=== PATIENT | female | born 1975 | race African-American/Black ===

== ENCOUNTER 2021-03-03 13:30 | Emergency (ER) | payer MEDICARE, MEDICAID, SELFPAY ==
[2021-03-03 13:45] VITALS: BP 124/77; PULSE 80; O2SAT 99
--- NOTE | 2021-03-03 13:58 | ED.DIZZY ---
HPI - Dizziness General Chief Complaint: Dizziness Stated Complaint: Chest pain Time Seen by Provider: 03/03/21 13:58 Source: patient Mode of arrival: ambulatory Limitations: no limitations History of Present Illness HPI Narrative: patient has issues with her blood pressure, lightheaded. patient states the her blood pressure has been running in the 200s MD elicited complaint: dizziness and lightheadedness Onset (ago): day(s) Timing: gradual onset Severity: mild History of similar symptoms: Yes Associated symptoms: nausea and vomiting Related Data Allergies Allergy/AdvReac Type Severity Reaction Status Date / Time Shellfish Allergy Mild RASH Uncoded 02/08/20 14:55 Review of Systems Constitutional: Constitutional: Reports no additional constitutional complaints Eyes: Eyes: Reports no additional eye complaints ENT: Denies dizziness Cardiovascular: Cardiovascular: Reports no additional cardiovascular complaints Respiratory: Respiratory: Reports as per HPI Gastrointestinal: Gastrointestinal: Reports no additional gastrointestinal complaints Genitourinary: Genitourinary: Reports no additional female genitourinary complaints Musculoskeletal: Musculoskeletal: Reports no additional musculoskeletal complaints Integumentary/Breasts: Skin/Breast: Denies rash Neurologic: Reports system reviewed and no additional complaints, except as documented, Denies dizziness and Denies Sensory deficit (Neuro) Psychiatric: Psychiatric: Denies anxiety PMFSH Social History Social History Advance Directives: No Advance Directives Information Provided: No Physical Exam Vital Signs: Vital Signs: Last Vital Signs Temp 98.3 F 03/03/21 14:46 Pulse 72 03/03/21 14:46 Resp 18 03/03/21 14:46 BP 116/80 03/03/21 14:46 Pulse Ox 98 03/03/21 14:46 Const: Other: patient very dramatic General: healthy appearing Nutritional Appearance: average body habitus Orientation/consciousness: oriented to person and patient oriented x3 Limitations: no limitations HENMT: Head: Yes normal to inspection Ears: external ears normal General nose exam: Normal external nose present Mouth: Normal oral and palatal mucosa present and oropharynx normal Throat: Yes posterior oropharynx normal Eyes: General: appearance normal, both eyes and all related structures Neck: Other: supple Neck: Yes normal visual inspection Chest: Chest palpation & inspection: normal inspection of the chest Resp: Auscultation: clear to auscultation bilaterally Cardio: Jugular venous distension: no JVD Rate: regular rate Rhythm: regular rhythm Heart sounds: S1 normal heart sound present and S2 normal heart sound present GI: Other: mild right upper quadrant tenderness with deep palpation Auscultation: normal bowel sounds : General: Yes no CVA tenderness Back/Spine/Pelvis: Back: no CVA tenderness Skin: General skin exam: no rashes or lesions noted Neuro: General: oriented to person and patient oriented x3 Cranial nerves: Yes CN's II-XII intact bilaterally Motor exam (neuro): 5/5 motor strength present throughout Sensory Exam: No Sensory deficit (Neuro) Extrem: General: Yes normal to inspection Psych: Other: very anxious Course Reevaluation(s) Reevaluation #1: Vitals normal, EKG and troponin normal. No cardiac reason for chest pain. will have patient follow up with her pmd Time: 16:12 [facility] - Dizziness Lab Data Result diagrams: 03/03/21 14:22 03/03/21 14:22 Labs: Lab Results 03/03/21 03/03/21 03/03/21 Range/Units 14:07 14:22 14:22 WBC 8.1 (4.8-10.8) X10*3/uL RBC 4.15 L (4.20-5.50) X10*6/uL Hgb 12.1 (12.0-16.0) g/dl Hct 36.1 L (37-47) % MCV 87.0 (80-98) fL MCH 29.2 (27.0-33.0) pg MCHC 33.5 (31.0-35.0) g/dl RDW 13.3 (11.0-16.0) % Plt Count 272 (160-400) X10*3/uL MPV 9.8 (9.4-12.3) fL Immature Gran % (Auto) 0.2 (0.0-0.4) % Neut % (Auto) 68.9 (45-73) % Lymph % (Auto) 22.6 (20-40) % [place] % (Auto) 7.2 (2-11) % Eos % (Auto) 0.7 (0-4) % Baso % (Auto) 0.4 (0-2) % Lymph # (Auto) 1.8 (1.2-4.9) X10*3/uL [place] # (Auto) 0.6 (0.1-1.2) X10*3/uL Eos # (Auto) 0.1 (0.0-0.4) X10*3/uL Baso # (Auto) 0.0 (0.0-0.2) X10*3/uL Abs Immat Gran (auto) 0.02 (0.00-0.03) X10*3/uL Absolute Neuts (auto) 5.6 (2.0-8.3) X10*3/uL Absolute Nucleated RBC 0.000 (0.0-0.012) X10*3/uL Nucleated RBC % (auto) 0.0 (0.0-0.2) /100WBC Sodium 140 (135-145) mmol/L Potassium 4.1 (3.3-5.1) mmol/L Chloride 109 H (96-108) mmol/L Carbon Dioxide 22 (22-29) mmol/L Anion Gap 13 (12-20) BUN 18 H (9-16) mg/dL Creatinine 0.73 (0.5-1.4) mg/dL Estim Creat Clear Calc TNP Estimated GFR > 60 Random Glucose 94 (60-115) mg/dL Calcium 9.2 (8.4-10.2) mg/dL Total Bilirubin 0.5 (0.0-1.0) mg/dL Direct Bilirubin < 0.2 (0.0-0.5) mg/dL AST 19 (5-31) U/L ALT 26 (0-31) U/L Alkaline Phosphatase 62 (39-117) U/L Troponin I High Sens (<3.5-17.0) ng/L Total Protein 7.2 (6.5-8.0) g/dL Albumin 4.1 (3.5-5.0) g/dL Coronavirus (PCR) NEGATIVE (Negative) Influenza Type A (PCR) NEGATIVE (Negative) Influenza Type B (PCR) NEGATIVE (Negative) RSV RNA Qual (PCR) NEGATIVE (Negative) 03/03/21 Range/Units 14:22 WBC (4.8-10.8) X10*3/uL RBC (4.20-5.50) X10*6/uL Hgb (12.0-16.0) g/dl Hct (37-47) % MCV (80-98) fL MCH (27.0-33.0) pg MCHC (31.0-35.0) g/dl RDW (11.0-16.0) % Plt Count (160-400) X10*3/uL MPV (9.4-12.3) fL Immature Gran % (Auto) (0.0-0.4) % Neut % (Auto) (45-73) % Lymph % (Auto) (20-40) % [place] % (Auto) (2-11) % Eos % (Auto) (0-4) % Baso % (Auto) (0-2) % Lymph # (Auto) (1.2-4.9) X10*3/uL [place] # (Auto) (0.1-1.2) X10*3/uL Eos # (Auto) (0.0-0.4) X10*3/uL Baso # (Auto) (0.0-0.2) X10*3/uL Abs Immat Gran (auto) (0.00-0.03) X10*3/uL Absolute Neuts (auto) (2.0-8.3) X10*3/uL Absolute Nucleated RBC (0.0-0.012) X10*3/uL Nucleated RBC % (auto) (0.0-0.2) /100WBC Sodium (135-145) mmol/L Potassium (3.3-5.1) mmol/L Chloride (96-108) mmol/L Carbon Dioxide (22-29) mmol/L Anion Gap (12-20) BUN (9-16) mg/dL Creatinine (0.5-1.4) mg/dL Estim Creat Clear Calc Estimated GFR Random Glucose (60-115) mg/dL Calcium (8.4-10.2) mg/dL Total Bilirubin (0.0-1.0) mg/dL Direct Bilirubin (0.0-0.5) mg/dL AST (5-31) U/L ALT (0-31) U/L Alkaline Phosphatase (39-117) U/L Troponin I High Sens < 3.5 (<3.5-17.0) ng/L Total Protein (6.5-8.0) g/dL Albumin (3.5-5.0) g/dL Coronavirus (PCR) (Negative) Influenza Type A (PCR) (Negative) Influenza Type B (PCR) (Negative) RSV RNA Qual (PCR) (Negative) ECG Data Attestation: I personally reviewed and interpreted this ECG as follows: ECG interpretation date: 03/03/21 ECG interpretation time: 15:15 Interpretation: Ventricular rate 75, normal sinus rhythm. No JEREMY, no t wave inversions Discharge Plan Discharge Clinical Impression: Dizziness, Chest pain not due to acute coronary syndrome Patient Disposition: Home, Self-Care Instructions: Noncardiac Chest Pain (ED), Dizziness (ED) Referrals: Shea Carrizales MD [Primary Care Provider] - 3 days
--- NOTE | 2021-03-03 14:01 | ECG_ITS ---
Test Reason : CHEST PAIN Blood Pressure : / mmHG Vent. Rate : 075 BPM Atrial Rate : 075 BPM P-R Int : 166 ms QRS Dur : 076 ms QT Int : 378 ms P-R-T Axes : 061 017 026 degrees QTc Int : 422 ms Normal sinus rhythm Normal ECG No previous ECGs available Referred By: Andrea Zhao Electronically Signed By:ANNETTE GOMEZ MD
[2021-03-03 14:39] LABS: MANUAL DIFF FLAG NO
[2021-03-03 14:41] LABS: Basophils Percent Auto 0.4 % (0-2); Eosinophils Absolute Auto 0.1 X10*3/uL (0.0-0.4); Eosinophils Percent Auto 0.7 % (0-4); Hematocrit 36.1 % (37-47); Hemoglobin 12.1 g/dl (12.0-16.0); Imm Gran Abs Auto 0.02 X10*3/uL (0.00-0.03); Imm Gran Pct Auto 0.2 % (0.0-0.4); Lymphocytes Absolute Auto 1.8 X10*3/uL (1.2-4.9); Lymphocytes Percent Auto 22.6 % (20-40); Mean Corpuscular HGB Conc 33.5 g/dl (31.0-35.0); Mean Corpuscular Hemoglobin 29.2 pg (27.0-33.0); Mean Platelet Volume 9.8 fL (9.4-12.3); Monocytes Absolute Auto 0.6 X10*3/uL (0.1-1.2); Monocytes Percent Auto 7.2 % (2-11); Neutrophils Absolute Auto 5.6 X10*3/uL (2.0-8.3); Neutrophils Percent Auto 68.9 % (45-73); Platelet Count 272 X10*3/uL (160-400); Red Blood Count 4.15 X10*6/uL (4.20-5.50); Red Cell Distribution Width 13.3 % (11.0-16.0); White Blood Count 8.1 X10*3/uL (4.8-10.8)
[2021-03-03 14:46] VITALS: BP 116/80; PULSE 72; RESP 18; TEMP 36.8; O2SAT 98
[2021-03-03 14:57] LABS: Alanine Aminotransferase 26 U/L (0-31); Albumin Level 4.1 g/dL (3.5-5.0); Alkaline Phosphatase 62 U/L (39-117); Anion Gap 13 (12-20); Aspartate Amino Transferase 19 U/L (5-31); Bilirubin Direct < 0.2 mg/dL (0.0-0.5); Bilirubin Total 0.5 mg/dL (0.0-1.0); Blood Urea Nitrogen 18 mg/dL (9-16); Calcium 9.2 mg/dL (8.4-10.2); Carbon Dioxide 22 mmol/L (22-29); Chloride 109 mmol/L (96-108); Estimated Glomerular Filt Rate > 60; Glucose Random 94 mg/dL (60-115); Potassium 4.1 mmol/L (3.3-5.1); Sodium 140 mmol/L (135-145); Total Protein 7.2 g/dL (6.5-8.0)
[2021-03-03 15:08] LABS: Troponin-I High Sensitivity < 3.5 ng/L (<3.5-17.0)
[2021-03-03 15:40] LABS: Influenza A PCR NEGATIVE (Negative); Influenza B PCR NEGATIVE (Negative); Resp Syncy Virus RNA Qual PCR NEGATIVE (Negative); SARS COV2 PCR INHOUSE NEGATIVE (Negative)
[2021-03-03 16:40] VITALS: BP 111/69; PULSE 68; RESP 18; TEMP 36.8; O2SAT 98
== END 2021-03-03 16:46 | disposition home or self-care (01) ==
PROVIDERS: Emergency Provider Emergency Medicine; PCP Internal Medicine
DX: R42 Dizziness and giddiness (principal); R07.9 Chest pain, unspecified; Z20.822 Contact with and (suspected) exposure to COVID-19
CPT/HCPCS: 0241U; 36415; 80048; 80076; 84484; 85025; 93005; 99283; 99284

== ENCOUNTER 2022-06-09 09:12 | Outpatient (REF) | payer OTHER, SELFPAY ==
[2022-06-09 13:07] LABS: Influenza A PCR NEGATIVE (Negative); Influenza B PCR NEGATIVE (Negative); Resp Syncy Virus RNA Qual PCR NEGATIVE (Negative); SARS COV2 PCR INHOUSE NEGATIVE (Negative)
== END 2022-06-09 09:13 | disposition home or self-care (01) ==
LOC: HO.LAB 09:12
PROVIDERS: Visit Provider Nurse Practitioner Family
DX: R11.2 Nausea with vomiting, unspecified (principal); Z20.822 Contact with and (suspected) exposure to COVID-19
CPT/HCPCS: 0241U

== ENCOUNTER 2022-09-01 12:31 | Emergency (ER) | payer OTHER, SELFPAY ==
--- NOTE | 2022-09-01 12:45 | ED_ITS ---
HPI - Abdominal Pain General Chief Complaint: General Medical Stated Complaint: lightheadness nausea Related Data Home Medications Medication Instructions Recorded Confirmed albuterol sulfate 2.5 mg/3 mL mg inhalation 06/09/22 (0.083 %) solution for nebulization albuterol sulfate 90 mcg/actuation 2 puff inhalation Q6H PRN wheezing 06/09/22 aerosol inhaler amlodipine 5 mg tablet 5 mg PO DAILY 06/09/22 fluticasone propionate 110 2 puff inhalation BID 06/09/22 mcg/actuation HFA aerosol inhaler (Flovent HFA) gabapentin 300 mg capsule 300 mg PO BEDTIME 06/09/22 meloxicam 15 mg tablet 15 mg PO DAILY 06/09/22 prednisone 20 mg tablet 20 mg PO BID 06/09/22 Previous Rx's Medication Instructions Recorded ondansetron 4 mg disintegrating 4 mg PO Q8H PRN nausea and 09/02/22 tablet vomiting #10 tabs Allergies Allergy/AdvReac Type Severity Reaction Status Date / Time Shellfish Allergy Mild RASH Uncoded 02/08/20 14:55 PMFSH Social History Social History Alcohol intake: unknown Patient Tobacco Use Status: Tobacco use Unknown Advance Directives: No Advance Directives Information Provided: Yes Physical Exam ED Vital Signs: BMI result Body Mass Index 32.6 Course Course Course Narrative: RME-- 46yo F w/no sig PMHx c/o fatigue, nausea, epigastric/RUQ abd pain, lightheadedness, diarrhea, fever (Tmax 101), sore throat x3 days. Vital signs stable abdomen soft epigastric/RUQ tenderness, no rebound or guarding EKG, Labs, UA, COVID/flu/rapid strep, abdomen ultrasound ordered Medical Decision Making Lab Data Labs: Lab Results 09/01/22 09/01/22 Range/Units 13:15 13:16 Urine Color Yellow Urine Appearance Clear Urine pH 8.0 (5.0-9.0) Ur Specific [place] 1.025 (1.005-1.025) Urine Protein Negative (Neg-Trace) mg/dL Urine Glucose (UA) Negative (Negative) mg/dL Urine Ketones Negative (Negative) mg/dL Urine Blood Negative (Negative) Urine Nitrite Negative (Negative) Ur Leukocyte Esterase Negative (Negative) COVID-19 (COREY) Negative (Negative) COVID-19 Clin Com See Note Discharge Plan Discharge Clinical Impression: Acute viral syndrome Patient Disposition: Elopement Prescriptions: No Action ondansetron 4 mg tablet,disintegrating 4 mg PO Q8H PRN (Reason: nausea and vomiting) Qty: 10 0RF albuterol sulfate 90 mcg/actuation HFA aerosol inhaler 2 puff inhalation Q6H PRN (Reason: wheezing) meloxicam 15 mg tablet 15 mg PO DAILY fluticasone propionate [Flovent HFA] 110 mcg/actuation HFA aerosol inhaler 2 puff inhalation BID gabapentin 300 mg capsule 300 mg PO BEDTIME amlodipine 5 mg tablet 5 mg PO DAILY albuterol sulfate 2.5 mg /3 mL (0.083 %) solution for nebulization inhalation prednisone 20 mg tablet 20 mg PO BID Interventions: ED Discharge Assessment Last Done: 09/01/22 13:53 Discharge Date/Time: 09/01/22 13:55
[2022-09-01 12:46] VITALS: BP 151/83; PULSE 69; RESP 18; TEMP 36.9; O2SAT 98; BMI 32.6
--- NOTE | 2022-09-01 12:47 | ECG_ITS ---
Test Reason : epigastric pain ,ligtheaded Blood Pressure : / mmHG Vent. Rate : 062 BPM Atrial Rate : 062 BPM P-R Int : 168 ms QRS Dur : 082 ms QT Int : 386 ms P-R-T Axes : 063 005 025 degrees QTc Int : 391 ms Normal sinus rhythm Normal ECG When compared with ECG of 03-MAR-2021 14:36, No significant change was found Referred By: Dolores Al Electronically Signed By:STACY VILLALOBOS MD
[2022-09-01 13:26] LABS: Appearance Urine Clear; Color Urine Yellow; Glucose Urine UA Negative (Negative); Leukocyte Esterase Urine Negative (Negative); Nitrite Urine Negative (Negative); Specific Gravity - Urine 1.025 (1.005-1.025); Urine Blood Negative (Negative); Urine Ketones Negative (Negative); Urine Protein Negative (Neg-Trace)
[2022-09-01 13:42] LABS: COVID-19 Test Negative (Negative); IDNOW Serial# 6674DD1D
--- OUTSIDE RECORDS SUMMARY | 2022-09-01 13:56 | XMS_ITS | Continuity of Care Document ---
Author Name Unknown Organization [facility] juan c Address [address] [place] [address] [address] [place] [address]- Care Team Providers Care Hand Assembler For Puller Over Name Role Phone Kirti Jarrett MD Primary Care Physician [phone] Encounter [facility] Date(s): 10/08/20 - 12/08/20 [facility] [address] [place], [place] [address] Attending Physician: Trinidad STERN, Regla Hester Allergies, Adverse Reactions, Alerts Substance Reaction Severity Status shellfish Exacerbation of asthma Severe Activ e Pet Dander Exacerbation asthma Active Immunizations Not Given Vaccine Date Status Refusal Reason pneumococcal 23-valent vaccine 05/15/16 Not Given Patient Refuses Medications albuterol 0.083% inhalation solution 3 mL = 2.5 mg, Inhalation, Every 6 hours, PRN for wheezing, # 60 each, 0 Refills, Maintenance, Solution Start Date: 11/06/10 Status: Ordered albuterol 0.083% inhalation solution 3 mL = 2.5 mg, Neb, Every 4 hours, PRN as needed for wheezing, # 90 mL, 0 Refills, Maintenance, 07/06/19 19:27:00 EST, Solution, [facility] #[id number], 165, cm, 05/14/19 3:46:00 EST, Height, 105, kg, 05/14/19 3:46:00 EST, Dry Weight Start Date: 07/06/19 Status: Ordered albuterol CFC free 90 mcg/inh inhalation aerosol 2, puffs, Inhalation, Every 4 hours, PRN, # 18 Gm, Refills 0, Tot. Refills 0, Maintenance, 07/06/2018:28:00 EST, Aerosol, Route to Pharmacy Electronically, NCPDP_[id number], [facility] #[id number], 165, cm, 05/14/19 3:46:00 EST, Height, 105, kg,... Start Date: 07/06/19 Status: Ordered Ativan 0.5 mg oral tablet 1 tablet = 0.5 mg, By Mouth, Daily, PRN as needed for anxiety, # 5 tablet, 0 Refills, Soft Stop, 05/16/16 12:02:27, Tablet Start Date: 05/16/16 Status: Ordered Cymbalta Capsule By Mouth, 0 Refills, Maintenance, 08/16/20 13:56:00 EDT, Partial fill upon patient request if the prescription is for a schedule II opioid drug. Start Date: 08/16/20 Status: Ordered docusate sodium 100 mg oral capsule 100 mg, 1, capsule, By Mouth, 2 times a day, # 60 capsule, Refills 0, Tot. Refills 0, Maintenance, 10/02/20 7:17:00 EDT, Route to Pharmacy Electronically, [facility] #[id number], Partial fill upon patient request if the prescription is for a sche... Start Date: 10/02/20 Status: Ordered EpiPen 2-Gary 0.3 mg injectable kit = 0.3 mg, Intramuscular, Once, PRN Other, As needed for allergic reaction may repeat if necessary, # 1 kit, 0 Refills, Soft Stop, 10/05/17 7:12:29 EDT Start Date: 10/05/17 Status: Ordered Gabapentin By Mouth, 0 Refills, Maintenance, 08/16/20 13:56:00 EDT, Partial fill upon patient request if the prescription is for a schedule II opioid drug. Start Date: 08/16/20 Status: Ordered ibuprofen 400 mg oral tablet 1 tablet = 400 mg, By Mouth, Every 4 hours, PRN for pain, # 30 tablet, 0 Refills, Maintenance, 02/14/15 13:07:00, Tablet Start Date: 02/14/15 Stop Date: 02/19/15 Status: Ordered Symbicort 160mcg/4.5mcg Inhaler 2 puffs, Inhalation, 2 times a day, 0 Refills, Maintenance Start Date: 02/25/11 Status: Ordered Social History Social History Type Response Smoking Status Never smoker entered on: 05/14/16 Sex
--- OUTSIDE RECORDS SUMMARY | 2022-09-01 13:56 | XMS_ITS | Continuity of Care Document ---
Author Name Unknown Organization [facility] Address [address] [place] [address]- Care Team Providers Care Feller Hand Name Role Phone Kirti Jarrett MD Primary Care Physician [phone] Encounter [facility] Date(s): 05/13/19 - 05/14/[address] [address] [facility] Encounter Diagnosis Vaginal bleeding(Final) - 05/14/19 Lower abdominal pain(Final) - 05/14/19 LLQ pain(Final) - 05/14/19 [facility]charge [facility]: [facility] Attending Physician: Cecil Dumont MD Admitting Physician: Cecil Dumont MD Referring Physician: Not on Staff, Referring MD Allergies, Adverse Reactions, Alerts Substance Reaction Severity Status shellfish Exacerbation of asthma Severe Activ e Immunizations Not Given Vaccine Date Status Refusal Reason pneumococcal 23-valent vaccine 05/15/16 Not Given Patient Refuses Medications albuterol 0.083% inhalation solution 3 mL = 2.5 mg, Inhalation, Every 6 hours, PRN for wheezing, # 60 each, 0 Refills, Maintenance, Solution Start Date: 11/06/10 Status: Ordered albuterol CFC free 90 mcg/inh inhalation aerosol 2 puffs, Inhalation, 4 times a day, PRN for wheezing, # 75 Gm, 0 Refills, Maintenance, Aerosol Start Date: 06/12/12 Status: Ordered Ativan 0.5 mg oral tablet 1 tablet = 0.5 mg, By Mouth, Daily, PRN as needed for anxiety, # 5 tablet, 0 Refills, Soft Stop, 05/16/16 12:02:27, Tablet Start Date: 05/16/16 Status: Ordered EpiPen 2-Gary 0.3 mg injectable kit = 0.3 mg, Intramuscular, Once, PRN Other, As needed for allergic reaction may repeat if necessary, # 1 kit, 0 Refills, Soft Stop, 10/05/17 7:12:29 EDT Start Date: 10/05/17 Status: Ordered ibuprofen 400 mg oral tablet 1 tablet = 400 mg, By Mouth, Every 4 hours, PRN for pain, # 30 tablet, 0 Refills, Maintenance, 02/14/15 13:07:00, Tablet Start Date: 02/14/15 Stop Date: 02/19/15 Status: Ordered Symbicort 160mcg/4.5mcg Inhaler 2 puffs, Inhalation, 2 times a day, 0 Refills, Maintenance Start Date: 02/25/11 Status: Ordered Results Orders for Microbiology Reports Name Date Wet Prep 05/14/19 Microbiology Reports TEST:Wet Prep STATUS:Auth (Verified) BODY SITE: SOURCE:VAGINA COLLECTED DATE/TIME:05/14/19 3:19 AM Wet Prep SPECIMEN DESCRIPTION : VAGINAL SPECIMEN SPECIAL REQUESTS : NONE DIRECT EXAM : 1+ WHITE BLOOD CELLS NO TRICHOMONAS,YEAST,OR CLUE CELLS OBSERVED REPORT STATUS : FINAL 05/14/2019 Vital Signs Most recent to oldest [Reference Range]: 1 2 3 Height 165 cm (05/14/19 3:46 AM) 165 cm (05/14/19 1:13 AM) 165 cm (05/13/19 10:15 PM) Weight 105 kg (05/14/19 3:46 AM) 105 kg (05/14/19 1:13 AM) 105 kg (05/13/19 10:15 PM) Oxygen Saturation [94-100 %] 99 % (05/14/19 3:46 AM) 98 % (05/14/19 1:13 AM) 100 % (05/13/19 10:15 PM) Pulse Rate [55-90 bpm] 71 bpm (05/14/19 3:46 AM) 72 bpm (05/14/19 1:13 AM) 95 bpm *H* (05/13/19 10:15 PM) Body Mass Index [18.5-24.99] 38.57 *>HHI* (05/14/19 3:46 AM) 38.57 *>HHI* (05/14/19 1:13 AM) Blood Pressure [90-138/55-84 mm Hg] 117/80mm Hg (05/14/19 3:46 AM) 122/83mm Hg (05/14/19 1:13 AM) 118/72mm Hg (05/13/19 10:15 PM) Respiratory Rate [16-30 br/min] 16 br/min (05/14/19 3:46 AM) 16 br/min (05/14/19 1:55 AM) 20 br/min (05/14/19 1:13 AM) Temperature [96.8-100.4 DegF] 98.5 DegF (05/13/19 10:15 PM) Mode of Delivery (Oxygen) Room air (05/14/19 3:46 AM) Room air (05/14/19 1:13 AM) Room air (05/13/19 10:15 PM) Blood pressure sites Arm, left (05/14/19 1:13 AM) Temperature Route Temporal (05/13/19 10:15 PM) Dry Weight 105 kg (05/14/19 3:46 AM) 105 kg (05/14/19 1:13 AM) 105 kg (05/13/19 10:15 PM) Social History Social History Type Response Smoking Status Never smoker entered on: 05/14/16 Sex
--- OUTSIDE RECORDS SUMMARY | 2022-09-01 13:56 | XMS_ITS | Continuity of Care Document ---
Author Name Unknown Organization [facility] ter Address [address] [place] [id number]- Care Team Providers Care Retort Fireman Name Role Phone Kirti Jarrett MD Primary Care Physician Encounter [facility] Date(s): 02/12/22 - 02/12/[address] [address]- Discharge Disposition: A-D/C Walkout Attending Physician: Not on Staff, Attending MD Admitting Physician: Not on Staff, Admitting MD Referring Physician: Not on Staff, Referring [...] 0 Refills, Maintenance, 07/06/19 19:27:00 EST, Solution, [facility] #[id number], 165, cm, 05/14/19 3:46:00 EST, Height, 105, kg, 05/14/19 3:46:00 EST, Dry Weight Start Date: 07/06/19 Status: Ordered albuterol CFC free 90 mcg/inh inhalation aerosol 2, puffs, Inhalation, Every 4 hours, PRN, # 18 Gm, Refills 0, Tot. Refills 0, Maintenance, 07/06/2018:28:00 EST, Aerosol, Route to Pharmacy Electronically, [place]PDP_[id number], [facility] #[id number], 165, cm, 05/14/19 3:46:00 EST, Height, 105, [...] 10/02/20 7:17:00 EDT, Route to Pharmacy Electronically, [facility] #[id number], Partial fill upon patient request if the [...] Status Never smoker entered on: 05/14/16 Sex Care Team Personnel Name: Kirti Jarrett MD Address: [address] [place] [id number]
--- OUTSIDE RECORDS SUMMARY | 2022-09-01 13:56 | XMS_ITS | Continuity of Care Document ---
Author Name Unknown Organization [facility] juan c Address [address] [place] [address] [address] [place] [address]- Care Team Providers Care Industrial Electrician Name Role Phone Kirti Jarrett MD Primary Care Physician En[place] [facility] Date(s): 10/14/20 - 11/14/20 [facility] [address] [place], [place] [address] Attending Physician: Regla Abdi NP Referring Physician: Kirti Jarrett MD Allergies, Adverse Reactions, Alerts Substance Reaction [...] 0 Refills, Maintenance, 07/06/19 19:27:00 EST, Solution, [facility] #[id number], 165, cm, 05/14/19 3:46:00 EST, Height, 105, kg, 05/14/19 3:46:00 EST, Dry Weight Start Date: 07/06/19 Status: Ordered albuterol CFC free 90 mcg/inh inhalation aerosol 2, puffs, Inhalation, Every 4 hours, PRN, # 18 Gm, Refills 0, Tot. Refills 0, Maintenance, 07/06/2018:28:00 EST, Aerosol, Route to Pharmacy Electronically, [id number], [facility] #[id number], 165, cm, 05/14/19 3:46:00 EST, Height, 105, [...] 10/02/20 7:17:00 EDT, Route to Pharmacy Electronically, [facility] #[id number], Partial fill upon patient request if the [...]
--- OUTSIDE RECORDS SUMMARY | 2022-09-01 13:56 | XMS_ITS | Continuity of Care Document ---
Author Name Unknown Organization [facility] juan [facility] Address [address] [place] [address] [address] [place] [address]- Care Team Providers Care Hotel Staff Member Name Role Phone Kirti Jarrett MD Primary Care Physician Encounter [facility] Date(s): 09/20/20 - 10/20/20 [facility] [address] [place], [place] [address] Allergies, Adverse Reactions, Alerts Substance Reaction Severity [...] 0 Refills, Maintenance, 07/06/19 19:27:00 EST, Solution, [facility] #[id number], 165, cm, 05/14/19 3:46:00 EST, Height, 105, kg, 05/14/19 3:46:00 EST, Dry Weight Start Date: 07/06/19 Status: Ordered albuterol CFC free 90 mcg/inh inhalation aerosol 2, puffs, Inhalation, Every 4 hours, PRN, # 18 Gm, Refills 0, Tot. Refills 0, Maintenance, 07/06/2018:28:00 EST, Aerosol, [facility] to [facility] Electronically[id number] #[id number], 165, cm, 05/14/19 3:46:00 EST, Height, 105, [...] 10/02/20 7:17:00 EDT, Route to Pharmacy Electronically, [facility] #[id number], Partial fill upon patient request if the [...] Date: 02/14/15 Stop Date: 02/19/15 Status: Ordered ibuprofen 600 mg oral tablet 600 mg, 1, tablet, By Mouth, Every 6 hours, for 14 days, # 56 tablet, Refills 0, Tot. Refills 0, Acute 10/22/20 13:50:00 EDT, 10/08/20 13:50:00 EDT, Route to Pharmacy Electronically, [facility] #[id number], Partial fill upon patient request if th... Start Date: 10/08/20 Stop Date: 10/22/20 Status: Ordered Symbicort 160mcg/4.5mcg Inhaler 2 puffs, Inhalation, 2 times a day, 0 Refills, Maintenance Start Date: 02/25/11 Status: Ordered Social History Social History Type Response Smoking Status Never smoker entered on: 05/14/16 Sex
--- OUTSIDE RECORDS SUMMARY | 2022-09-01 13:56 | XMS_ITS | Continuity of Care Document ---
Author Name Unknown Organization [facility] ter Address [address] [place] [address]- Care Team Providers Care Curbing Stonecutter Name Role Phone Kirti Jarrett MD Primary Care Physician [place] [facility] Date(s): 05/14/19 - 05/14/[address] [address]- [facility] Encounter Diagnosis Vaginal bleeding(Final) - 05/14/19 Discharge Disposition: A-D/C Home Attending Physician: Karen Platt MD Admitting Physician: Karen Platt MD Referring Physician: Not on Staff, Referring [...] Refills, Maintenance Start Date: 02/25/11 Status: Ordered Vital Signs Most recent to oldest [Reference Range]: 1 2 3 Oxygen Saturation [94-100 %] 99 % (05/14/19 10:07 AM) 97 % (05/14/19 8:02 AM) 95 % (05/14/19 6:36 AM) Pulse Rate [55-90 bpm] 72 bpm (05/14/19 10:07 AM) 65 bpm (05/14/19 8:02 AM) 74 bpm (05/14/19 6:36 AM) Blood Pressure [90-138/55-84 mm Hg] 120/74mm Hg (05/14/19 10:07 AM) 97/61mm Hg (05/14/19 8:02 AM) 108/72mm Hg (05/14/19 6:36 AM) Respiratory Rate [16-30 br/min] 16 br/min (05/14/19 10:07 AM) 16 br/min (05/14/19 8:02 AM) 16 br/min (05/14/19 6:36 AM) Temperature [96.8-100.4 DegF] 97.5 DegF (05/14/19 8:02 AM) 97.3 DegF (05/14/19 6:54 AM) 97.5 DegF (05/14/19 4:42 AM) Mode of Delivery (Oxygen) Room air (05/14/19 10:07 AM) Room air (05/14/19 8:02 AM) Room air (05/14/19 6:36 AM) Blood pressure sites Arm, left (05/14/19 10:07 AM) Arm, left (05/14/19 8:02 AM) Arm, left (05/14/19 6:36 AM) Temperature Route Oral (05/14/19 8:02 AM) Oral (05/14/19 6:54 AM) Oral (05/14/19 4:59 AM) Social History Social History Type Response Smoking Status Never smoker entered on: 05/14/16 Sex
--- OUTSIDE RECORDS SUMMARY | 2022-09-01 13:56 | XMS_ITS | Continuity of Care Document ---
Author Name Unknown Organization [facility] juan c Address [address] [place] [address] [address] [place] [address]- Care Team Providers Care Energy Efficient Site Manager Name Role Phone Kirti Jarrett MD Primary Care Physician En[place] [facility] [place](s): 11/05/20 - 12/08/20 [facility] [address] [place], [place] [address] Attending Physician: Regla Abdi NP Referring [...] 0 Refills, Maintenance, 07/06/19 19:27:00 EST, Solution, [facility] #[id number], 165, cm, 05/14/19 3:46:00 EST, Height, 105, kg, 05/14/19 3:46:00 EST, Dry Weight Start Date: 07/06/19 Status: Ordered albuterol CFC free 90 mcg/inh inhalation aerosol 2, puffs, Inhalation, Every 4 hours, PRN, # 18 Gm, Refills 0, Tot. Refills 0, Maintenance, 07/06/2018:28:00 EST, Aerosol, Route to Pharmacy Electronically, COPDP_[id number], [facility] #[id number], 165, cm, 05/14/19 3:46:00 EST, Height, 105, [...] 10/02/20 7:17:00 EDT, Route to Pharmacy Electronically, [facility] #[id number], Partial fill upon patient request if the [...]
--- OUTSIDE RECORDS SUMMARY | 2022-09-01 13:56 | XMS_ITS | Continuity of Care Document ---
Author Name Unknown Organization [facility] juan c Address [address] [place] [address] [address] [place] [address]- Care Team Providers Care Hammer Adjuster Name Role Phone Kirti Jarrett MD Primary Care Physician Encounter [facility] Date(s): 09/10/20 - 10/10/20 [facility] [address] [place], [place] [address] Allergies, Adverse Reactions, Alerts Substance Reaction Severity [...] 0 Refills, Maintenance, 07/06/19 19:27:00 EST, Solution, [facility] #[id number], 165, cm, 05/14/19 3:46:00 EST, Height, 105, kg, 05/14/19 3:46:00 EST, Dry Weight Start Date: 07/06/19 Status: Ordered albuterol CFC free 90 mcg/inh inhalation aerosol 2, puffs, Inhalation, Every 4 hours, PRN, # 18 Gm, Refills 0, Tot. Refills 0, Maintenance, 07/06/2018:28:00 EST, Aerosol, Route to Pharmacy Electronically, NCPDP_[id number], [facility] #[id number], 165, cm, 05/14/19 3:46:00 EST, Height, 105, [...] 10/02/20 7:17:00 EDT, Route to Pharmacy Electronically, [facility] #[id number], Partial fill upon patient request if the [...] 10/08/20 13:50:00 EDT, Route to Pharmacy Electronically, [facility] #[id number], Partial fill upon patient request if th... Start Date: 10/08/20 Stop Date: 10/22/20 Status: Ordered Symbicort 160mcg/4.5mcg Inhaler 2 puffs, Inhalation, 2 times a day, 0 Refills, Maintenance Start Date: 02/25/11 Status: Ordered Social History Social History Type Response Smoking Status Never smoker entered on: 05/14/16 Sex
--- OUTSIDE RECORDS SUMMARY | 2022-09-01 13:56 | XMS_ITS | Continuity of Care Document ---
Author Name Unknown Organization [facility] ter Address [address] [place] [address]- Care Team Providers Care Riffler Tender Name Role Phone Shea Carrizales MD Primary Care Physician [place] [facility] [place] Date(s): 03/14/22 - 03/14/[address] [address]- Discharge Disposition: A-D/C Home Attending Physician: Yevgeniy Andino DO Admitting Physician: Yevgeniy Andino DO Referring Physician: Not on Staff, Referring MD [...] 0 Refills, Maintenance, 07/06/19 19:27:00 EST, Solution, [facility] #[id number], 165, cm, 05/14/19 3:46:00 EST, Height, 105, kg, 05/14/19 3:46:00 EST, Dry Weight Start Date: 07/06/19 Status: Ordered albuterol CFC free 90 mcg/inh inhalation aerosol 2, puffs, Inhalation, Every 4 hours, PRN, # 18 Gm, Refills 0, Tot. Refills 0, Maintenance, 07/06/2018:28:00 EST, Aerosol, [id number] #[id number], 165, cm, 05/14/19 3:46:00 EST, Height, 105, [...] 10/02/20 7:17:00 EDT, Route to Pharmacy Electronically, [facility] #[id number], Partial fill upon patient request if the [...] Date: 02/14/15 Stop Date: 02/19/15 Status: Ordered predniSONE 50 mg oral tablet 1 tablet = 50 mg, By Mouth, Daily, for 4 days, # 4 tablet, 0 Refills, Acute 03/18/22 16:02:00 EDT, 03/14/22 16:02:00 EDT, Tablet, [facility] #[id number], Partial fill upon patient request if theprescription is for a schedule II opioid drug., 172... Start Date: 03/14/22 Stop Date: 03/18/22 Status: Ordered Symbicort 160mcg/4.5mcg Inhaler 2 puffs, Inhalation, 2 times a day, 0 Refills, Maintenance Start Date: 02/25/11 Status: Ordered Results Radiology Reports * Exam Date Time Procedure Performing Provider Status 03/14/22 3:11 PM Chest 2 Views Frontal and Lat Liv Martinez; Maddy (Verified) Notes: (Chest 2 Views Frontal and Lat) Reason For Exam: Persistent Cough RESULT: Chest 2 Views Frontal and Lat Chest 2 Views Frontal and Lat INDICATION/CLINICAL QUESTION: Shortness of breath. Chest pain. TECHNIQUE: Frontal and lateral views of the chest. COMPARISON: 05/07/2021. FINDINGS: LINES AND TUBES: None. LUNGS AND PLEURA: RIGHT CHEST: The right lung is clear and there is no right effusion. LEFT CHEST: The left lung is clear and there is no left effusion. HEART, MEDIASTINUM AND FRACISCO: The heart is of normal size. The mediastinum and fracisco are normal. BONES AND SOFT TISSUES: No acute bony abnormality. IMPRESSION: 1. No active disease in chest. WSN: [id number] Ordering Physician: Abhijit Arroyo Dictated By: Juni Treadwell MD Dictated Date/Time: 03/14/22 3:49 pm Reviewed By: Juni Treadwell MD Signed By: Juni Treadwell MD Signed Date/Time: 03/14/22 3:49 pm Transcribed By: HANH Transcribed Date/Time: 03/14/22 3:49 pm Vital Signs Most recent to oldest [Reference Range]: 1 2 3 Oxygen Saturation [94-100 %] 99 % (03/14/22 3:21 PM) 96 % (03/14/22 1:37 PM) 99 % (03/14/22 1:18 PM) Pulse Rate [55-90 bpm] 92 bpm *H* (03/14/22 3:21 PM) 64 bpm (03/14/22 1:37 PM) 74 bpm (03/14/22 1:18 PM) Blood Pressure [90-138/55-84 mm Hg] 124/77mm Hg (03/14/22 3:21 PM) 129/91mm Hg (03/14/22 1:37 PM) 135/83mm Hg (03/14/22 1:18 PM) Respiratory Rate [16-30 br/min] 18 br/min (03/14/22 3:21 PM) 20 br/min (03/14/22 1:37 PM) 22 br/min (03/14/22 1:18 PM) Temperature [96.8-100.4 DegF] 98.0 DegF (03/14/22 1:37 PM) 98.7 DegF (03/14/22 1:18 PM) Mode of Delivery (Oxygen) Room air (03/14/22 3:21 PM) Room air (03/14/22 1:37 PM) Room air (03/14/22 1:18 PM) Temperature Route Oral (03/14/22 1:18 PM) Social History Social History Type Response Smoking Status Never smoker entered on: 05/14/16 Sex Note * [facility] , CIS S: TRANSCRIBE Juni Treadwell MD: VERIFY Event Display: Result: Authored Date: [id number] Chest 2 Views Frontal and Lat INDICATION/CLINICAL QUESTION: Shortness of breath. Chest pain. TECHNIQUE: Frontal and lateral views of the chest. COMPARISON: 05/07/2021. FINDINGS: LINES AND TUBES: None. LUNGS AND PLEURA: RIGHT CHEST: The right lung is clear and there is no right effusion. LEFT CHEST: The left lung is clear and there is no left effusion. HEART, MEDIASTINUM AND FRACISCO: The heart is of normal size. The mediastinum and fracisco are normal. BONES AND SOFT TISSUES: No acute bony abnormality. IMPRESSION: 1. No active disease in chest. WSN: [id number] Ordering Physician: Abhijit Arroyo Dictated By: Juni Treadwell MD Dictated Date/Time: 03/14/22 3:49 pm Reviewed By: Juni Treadwell MD Signed By: Juni Treadwell MD Signed Date/Time: 03/14/22 3:49 pm Transcribed By: HANH Transcribed Date/Time: 03/14/22 3:49 pm Patient Care team information Personnel Name: Shea Carrizales MD Address: Address: [address] [facility] [place] [address]
--- OUTSIDE RECORDS SUMMARY | 2022-09-01 13:56 | XMS_ITS | Continuity of Care Document ---
Author Name Unknown Organization [facility] juan c Address [address] [place] [address] [address] [place] [address]- Care Team Providers Care Retort Engineer Name Role Phone Kolby BRAGG, Kirti Irizarry Primary Care Physician [phone] Encounter [facility] Date(s): 06/26/20 - 09/19/20 [facility] [address] [place], [place] [address] Attending Physician: Jordan BRAGG, Antione Little Referring Physician: Not on Staff, Referring MD [...] 0 Refills, Maintenance, 07/06/19 19:27:00 EST, Solution, [facility] #[id number], 165, cm, 05/14/19 3:46:00 EST, Height, 105, kg, 05/14/19 3:46:00 EST, Dry Weight Start Date: 07/06/19 Status: Ordered albuterol CFC free 90 mcg/inh inhalation aerosol 2, puffs, Inhalation, Every 4 hours, PRN, # 18 Gm, Refills 0, Tot. Refills 0, Maintenance, 07/06/2018:28:00 EST, Aerosol, Route to Pharmacy Electronically, NCPDP_[id number], [facility] #[id number], 165, cm, 05/14/19 3:46:00 EST, Height, 105, kg,... Start Date: 07/06/19 Status: Ordered albuterol CFC [...] opioid drug. Start Date: 08/16/20 Status: Ordered EpiPen 2-Gary 0.3 mg injectable [...]
--- OUTSIDE RECORDS SUMMARY | 2022-09-01 13:56 | XMS_ITS | Continuity of Care Document ---
Author Name Unknown Organization [facility] juan c Address [address] [place] [address] [address] [place] [address]- Care Team Providers Care Career Based Intervention Coordinator Name Role Phone Kirti Jarrett MD Primary Care Physician Encounter [facility] Date(s): 11/12/20 - 12/12/[address] [facility] [address] [place], [place] [address] Allergies, Adverse Reactions, Alerts Substance Reaction Severity [...] 0 Refills, Maintenance, 07/06/19 19:27:00 EST, Solution, [facility] #[id number], 165, cm, 05/14/19 3:46:00 EST, Height, 105, kg, 05/14/19 3:46:00 EST, Dry Weight Start Date: 07/06/19 Status: Ordered albuterol CFC free 90 mcg/inh inhalation aerosol 2, puffs, Inhalation, Every 4 hours, PRN, # 18 Gm, Refills 0, Tot. Refills 0, Maintenance, 07/06/2018:28:00 EST, Aerosol, Route to Pharmacy Electronically, NCPDP_[id number], [facility] #31430, 165, cm, 05/14/19 3:46:00 EST, Height, 105, [...] 10/02/20 7:17:00 EDT, Route to Pharmacy Electronically, [facility] #[id number], Partial fill upon patient request if the [...]
--- OUTSIDE RECORDS SUMMARY | 2022-09-01 13:56 | XMS_ITS | Continuity of Care Document ---
Author Name Unknown Organization [facility] juan c Address [address] [place] [address] [address] [place] [address]- Care Team Providers Care Colorer Machine Name Role Phone Kirti Jarrett MD Primary Care Physician Encounter [facility] Date(s): 11/05/20 - 12/05/20 [facility] [address] [place], [place] [address] Allergies, Adverse Reactions, Alerts Substance Reaction [...] 0 Refills, Maintenance, 07/06/19 19:27:00 EST, Solution, [facility] #[id number], 165, cm, 05/14/19 3:46:00 EST, Height, 105, kg, 05/14/19 3:46:00 EST, Dry Weight Start Date: 07/06/19 Status: Ordered albuterol CFC free 90 mcg/inh inhalation aerosol 2, puffs, Inhalation, Every 4 hours, PRN, # 18 Gm, Refills 0, Tot. Refills 0, Maintenance, 07/06/2018:28:00 EST, Aerosol, Route to Pharmacy Electronically, NCPDP_[id number], [facility] #[id number], 165, cm, 05/14/19 3:46:00 EST, Height, 105, [...] 10/02/20 7:17:00 EDT, Route to Pharmacy Electronically, [facility] #[id number], Partial fill upon patient request if the [...]
--- OUTSIDE RECORDS SUMMARY | 2022-09-01 13:56 | XMS_ITS | Continuity of Care Document ---
Author Name Unknown Organization [facility] juan c Address [address] [place] [address] [address] [place] [address]- Care Team Providers Care Wood Flooring Specialist Name Role Phone Kirti Jarrett MD Primary Care Physician [place] [facility] [place]s): 09/19/20 - 10/19/20 [facility] [address] [place], [place] [address] Allergies, Adverse Reactions, Alerts Substance [...] 0 Refills, Maintenance, 07/06/19 19:27:00 EST, Solution, [facility] #[id number], 165, cm, 05/14/19 3:46:00 EST, Height, 105, kg, 05/14/19 3:46:00 EST, Dry Weight Start Date: 07/06/19 Status: Ordered albuterol CFC free 90 mcg/inh inhalation aerosol 2, puffs, Inhalation, Every 4 hours, PRN, # 18 Gm, Refills 0, Tot. Refills 0, Maintenance, 07/06/2018:28:00 EST, Aerosol, [id number] #[id number], 165, cm, 05/14/19 3:46:00 EST, Height, 105, [...] 10/02/20 7:17:00 EDT, Route to Pharmacy Electronically, [facility] #[id number], Partial fill upon patient request if the [...] 10/08/20 13:50:00 EDT, Route to Pharmacy Electronically, [facility] #[id number], Partial fill upon patient request if th... Start Date: 10/08/20 Stop Date: 10/22/20 Status: Ordered Symbicort 160mcg/4.5mcg Inhaler 2 puffs, Inhalation, 2 times a day, 0 Refills, Maintenance Start Date: 02/25/11 Status: Ordered Social History Social History Type Response Smoking Status Never smoker entered on: 05/14/16 Sex
--- OUTSIDE RECORDS SUMMARY | 2022-09-01 13:56 | XMS_ITS | Continuity of Care Document ---
Author Name Unknown Organization [facility] juan c Address [address] [place] [address] [address] [place] [address]- Care Team Providers Care Skiver Hand Name Role Phone Kirti Jarrett MD Primary Care Physician [phone] Encounter [facility] [place] Date(s): 11/07/20 - 12/07/20 [facility] [address] [place], [place] [address] Attending Physician: Admtr, [id number] Admitting Physician: Admtr, [id number] Referring Physician: Admtr, [id number] Allergies, Adverse Reactions, Alerts Substance Reaction Severity [...] 0 Refills, Maintenance, 07/06/19 19:27:00 EST, Solution, [facility] #[id number], 165, cm, 05/14/19 3:46:00 EST, Height, 105, kg, 05/14/19 3:46:00 EST, Dry Weight Start Date: 07/06/19 Status: Ordered albuterol CFC free 90 mcg/inh inhalation aerosol 2, puffs, Inhalation, Every 4 hours, PRN, # 18 Gm, Refills 0, Tot. Refills 0, Maintenance, 07/06/2018:28:00 EST, Aerosol, Route to Pharmacy Electronically, PAPDP_[id number], [facility] #[id number], 165, cm, 05/14/19 3:46:00 EST, Height, 105, [...] 10/02/20 7:17:00 EDT, Route to Pharmacy Electronically, [facility] #[id number], Partial fill upon patient request if the [...]
--- OUTSIDE RECORDS SUMMARY | 2022-09-01 13:56 | XMS_ITS | Continuity of Care Document ---
Author Name Unknown Organization [facility] ter Address [address] [place] [address]- Care Team Providers Care Eligibility Specialist Name Role Phone Shea Carrizales MD Primary Care Physician Encounter [facility] [place] Date(s): 03/16/22 - 03/16/[address] [address]- Discharge Disposition: A-D/C Walkout Attending Physician: Not [...] 0 Refills, Maintenance, 07/06/19 19:27:00 EST, Solution, [facility] #[id number], 165, cm, 05/14/19 3:46:00 EST, Height, 105, kg, 05/14/19 3:46:00 EST, Dry Weight Start Date: 07/06/19 Status: Ordered albuterol CFC free 90 mcg/inh inhalation aerosol 2, puffs, Inhalation, Every 4 hours, PRN, # 18 Gm, Refills 0, Tot. Refills 0, Maintenance, 07/06/2018:28:00 EST, Aerosol, Route to Pharmacy Electronically, WIPDP_[id number], [facility] #[id number], 165, cm, 05/14/19 3:46:00 EST, Height, 105, [...] 10/02/20 7:17:00 EDT, Route to Pharmacy Electronically, [facility] #[id number], Partial fill upon patient request if the [...] 03/14/22 16:02:00 EDT, Tablet, [facility] #[id number], Partial fill upon patient request if theprescription is for a schedule II opioid drug., 172... Start Date: 03/14/22 Stop Date: 03/18/22 Status: Ordered Symbicort 160mcg/4.5mcg Inhaler 2 puffs, Inhalation, 2 times a day, 0 Refills, Maintenance Start Date: 02/25/11 Status: Ordered Vital Signs Most recent to oldest [Reference Range]: 1 2 Oxygen Saturation [94-100 %] 98 % (03/16/22 8:05 PM) 98 % (03/16/22 4:59 PM) Pulse Rate [55-90 bpm] 70 bpm (03/16/22 8:05 PM) 91 bpm *H* (03/16/22 4:59 PM) Blood Pressure [90-138/55-84 mm Hg] 112/ 66mm Hg (03/16/22 8:05 PM) Respiratory Rate [16-30 br/min] 18 br/mi n (03/16/22 8:05 PM) Mode of Delivery (Oxygen) Room air (03/16/22 8:05 PM) Room air (03/16/22 4:59 PM) Blood pressure sites Arm, right (03/16/22 8:05 PM) Social History Social History Type Response Smoking Status Never smoker entered on: 05/14/16 Sex Patient Care team information Personnel Name: Shea Carrizales MD Address: Address: [address] [place] [address]
--- OUTSIDE RECORDS SUMMARY | 2022-09-01 13:56 | XMS_ITS | Continuity of Care Document ---
Author Name Unknown Organization [facility] juan c Address [address] [place] [address] [address] [place] [address]- Care Team Providers Care Post Doc Fellowship Name Role Phone Kirti Jarrett MD Primary Care Physician [place] [facility] [place](s): 09/20/20 - 10/20/20 [facility] [address] [place], [place] [address] Attending Physician: Soumya Golden Admitting Physician: Soumya Golden Referring Physician: Soumya Golden Allergies, Adverse Reactions, Alerts Substance Reaction Severity [...] 0 Refills, Maintenance, 07/06/19 19:27:00 EST, Solution, [facility] #[id number], 165, cm, 05/14/19 3:46:00 EST, Height, 105, kg, 05/14/19 3:46:00 EST, Dry Weight Start Date: 07/06/19 Status: Ordered albuterol CFC free 90 mcg/inh inhalation aerosol 2, puffs, Inhalation, Every 4 hours, PRN, # 18 Gm, Refills 0, Tot. Refills 0, Maintenance, 07/06/2018:28:00 EST, Aerosol, Route to Pharmacy Electronically, PAPDP_[id number], [facility] #[id number], 165, cm, 05/14/19 3:46:00 EST, Height, 105, [...] 10/02/20 7:17:00 EDT, Route to Pharmacy Electronically, [facility] #[id number], Partial fill upon patient request if the [...] 10/08/20 13:50:00 EDT, [id number], Partial fill upon patient request if th... Start Date: 10/08/20 Stop Date: 10/22/20 Status: Ordered Symbicort 160mcg/4.5mcg Inhaler 2 puffs, Inhalation, 2 times a day, 0 Refills, Maintenance Start Date: 02/25/11 Status: Ordered Social History Social History Type Response Smoking Status Never smoker entered on: 05/14/16 Sex
--- OUTSIDE RECORDS SUMMARY | 2022-09-01 13:56 | XMS_ITS | Continuity of Care Document ---
Author Name Unknown Organization [facility] juan c Address [address] [place] [address] [address] [place] [address]- Care Team Providers Care Softlines Supervisor Name Role Phone Kolby BRAGG, Kirti Irizarry Primary Care Physician Encounter [facility] Date(s): 11/07/20 - 11/14/20 [facility] [address] [place], [place] [address] Attending Physician: Antione Ortega MD Allergies, Adverse Reactions, Alerts Substance Reaction [...] 0 Refills, Maintenance, 07/06/19 19:27:00 EST, Solution, [facility] #[id number], 165, cm, 05/14/19 3:46:00 EST, Height, 105, kg, 05/14/19 3:46:00 EST, Dry Weight Start Date: 07/06/19 Status: Ordered albuterol CFC free 90 mcg/inh inhalation aerosol 2, puffs, Inhalation, Every 4 hours, PRN, # 18 Gm, Refills 0, Tot. Refills 0, Maintenance, 07/06/2018:28:00 EST, Aerosol, Route to Pharmacy Electronically, NCPDP_[id number], [facility] #[id number], 165, cm, 05/14/19 3:46:00 EST, Height, 105, [...] 10/02/20 7:17:00 EDT, Route to Pharmacy Electronically, [facility] #[id number], Partial fill upon patient request if the [...] Most recent to oldest [Reference Range]: 1 Height 172.7 cm (11/07/20 3:04 PM) Temperature [96.8-100.4 DegF] 97.7 DegF (11/07/20 3:04 PM) Temperature Route Temporal (11/07/20 3:04 PM) Social History Social History Type Response Smoking Status Never smoker entered on: 05/14/16 Sex
== END 2022-09-01 13:55 | disposition left against medical advice (07) ==
PROVIDERS: Physician Assistant; Emergency Provider Emergency Medicine; PCP Internal Medicine
DX: B34.9 Viral infection, unspecified (principal); R42 Dizziness and giddiness; Z20.822 Contact with and (suspected) exposure to COVID-19; Z20.828 Contact with and (suspected) exposure to other viral communicable diseases; Z79.899 Other long term (current) drug therapy
CPT/HCPCS: 81003; 87635; 93005; 99283

== ENCOUNTER 2022-09-02 10:07 | Emergency (ER) | payer MEDICARE, MEDICAID, SELFPAY ==
[2022-09-02 10:13] VITALS: BP 146/89; PULSE 72; RESP 18; TEMP 36.6; O2SAT 97; BMI 32.6
--- NOTE | 2022-09-02 10:41 | ED.MEDCLEAR ---
HPI - Medical Clearance General Chief complaint: Medical Clearance Stated complaint: Medical Clearance Time Seen by Provider: 09/02/22 10:41 Source: patient Mode of arrival: ambulatory History of Present Illness HPI Narrative: 47-year-old female with no significant past medical history presenting to the ED for medical clearance so she can follow up with her PCP. Reports fatigue, lightheadedness, nausea, diarrhea, and fever starting on Wednesday. Admits symptoms are improving however cannot follow-up with her PCP and she is cleared by the ED. Reports mild decreased p.o. intake, tolerating Pedialyte and chicken broth. Patient was evaluated in the ED yesterday in triage, however of LWT'd prior to labs or imaging. Denies fever at present, CP/SOB, abdominal pain, vomiting, travel/suspicious food intake MD complaint: medical clearance requested Onset (ago): day(s) Related Information Home Medications Medication Instructions Recorded Confirmed albuterol sulfate 2.5 mg/3 mL mg inhalation 06/09/22 (0.083 %) solution for nebulization albuterol sulfate 90 mcg/actuation 2 puff inhalation Q6H PRN wheezing 06/09/22 aerosol inhaler amlodipine 5 mg tablet 5 mg PO DAILY 06/09/22 fluticasone propionate 110 2 puff inhalation BID 06/09/22 mcg/actuation HFA aerosol inhaler (Flovent HFA) gabapentin 300 mg capsule 300 mg PO BEDTIME 06/09/22 meloxicam 15 mg tablet 15 mg PO DAILY 06/09/22 prednisone 20 mg tablet 20 mg PO BID 06/09/22 Previous Rx's Medication Instructions Recorded ondansetron 4 mg disintegrating 4 mg PO Q8H PRN nausea and 09/02/22 tablet vomiting #10 tabs Allergies Allergy/AdvReac Type Severity Reaction Status Date / Time Shellfish Allergy Mild RASH Uncoded 02/08/20 14:55 Review of Systems Review of Systems: Constitutional: + Fever (resolved), No Chills, + Fatigue, No Malaise ENT/Mouth: No Ear Pain, + Nasal Congestion, No Sinus Pain, No Hoarseness, No sore throat, No Rhinorrhea, No Swallowing Difficulty Eyes: No Eye Pain, No Swelling, No Redness Cardiovascular: No Chest Pain, No SOB, No Edema, No Palpitations Respiratory: No Cough, No Sputum, No Dyspnea Gastrointestinal: + Nausea, No Vomiting, + Diarrhea (resolved), No Constipation, No Abdominal pain Genitourinary: No Dysuria, No Urinary Frequency, No Hematuria, No Flank Pain, No Urinary Flow Changes, No Hesitancy Musculoskeletal: No joint pain, No Myalgias, No Joint Swelling Skin: No Skin Lesions, No rash Neuro: No Weakness, No Numbness, + lightheadedness, No Headache Yes all other systems are reviewed and are negative Constitutional: Constitutional: Reports as per [facility] Past Medical History Attestation statement: The following information was validated with the patient. Social History Social History Alcohol intake: unknown Patient Tobacco Use Status: Tobacco use Unknown Advance Directives: No Advance Directives Information Provided: Yes Physical Exam Vital Signs: Vital Signs: Last Vital Signs Temp 97.9 F 09/02/22 10:13 Pulse 72 09/02/22 10:13 Resp 18 09/02/22 10:13 BP 146/89 H 09/02/22 10:13 Pulse Ox 97 09/02/22 10:13 O2 Del Method Room Air 09/02/22 10:13 BMI result Body Mass Index 32.6 Const: General: cooperative, healthy appearing and no acute distress Orientation/consciousness: patient oriented x3 Limitations: no limitations HEENT: Head: Yes normal to inspection and Yes atraumatic Ears: hearing grossly normal bilaterally General nose exam: Normal external nose present Face and sinus: Yes normal facial exam Eyes: General: appearance normal, both eyes and all related structures EOM: EOMs intact bilaterally Neck: Neck: Yes normal visual inspection and Yes no meningeal signs Resp: Effort & Inspection: normal respiratory effort and no respiratory distress Auscultation: clear to auscultation bilaterally, no crackles, no rhonchi and no wheezes Cardio: Rate: regular rate Heart sounds: S1 normal heart sound present and S2 normal heart sound present GI: Inspection: Yes normal to inspection Palpation (GI): Soft to palpation, nontender, no guarding and not rigid Skin: Rashes: no rashes Wounds: no wounds Neuro: General: patient oriented x3, gait normal, tone normal and no meningeal signs Gait exam (Neuro): Normal gait present Extrem: General: Yes normal to inspection Course Course Course Narrative: -1317--labs unremarkable. Patient tested negative for COVID-19 yesterday >> reports symptomatic improvement, requesting to be discharged. Is tolerating p.o. without difficulty Results discussed with patient including worrisome signs and symptoms and strict return precautions, and when to return to the emergency department. They verbalized understanding and feel safe for discharge at this time. Medications Administered Discontinued Medications Generic Name Dose Route Start Last Admin Trade Name Patricia PRN Reason Stop Dose Admin Sodium Chloride 1,000 mls @ 999 mls/hr 09/02/22 11:00 09/02/22 13:13 Ns IV 09/02/22 12:00 Infused .Q1H1M ADAM Infusion Ondansetron HCl 4 mg 09/02/22 10:52 09/02/22 11:42 Ondansetron Hcl 4 Mg/2 Ml Vial IVPUSH 09/02/22 10:53 4 mg ONCE ONE Administration Medical Decision Making Medical Decision Making [facility] [place] Narrative: 47-year-old female with no significant past medical history presenting to the ED for medical clearance so she can follow up with her PCP. Reports fatigue, lightheadedness, nausea, diarrhea, and fever starting on Wednesday. Admits symptoms are improving. On exam vital signs stable, NAD, nontoxic appearing, abdomen soft/nontender, exam otherwise nonfocal. Concern for viral illness vs dehydration/metabolic abnormalities. Low suspicion for intra-abdominal infection or pneumonia Plan: EKG, labs, UA, IVF, Zofran, p.o. challenge Please refer to course for remaining clinical decision making, interpretation of labs/imaging results, and discussions with consultants and/or family members. Differential Diagnosis Differential Diagnoses: The differential diagnosis associated with the presentation includes As above Admission/Observation Consideration of admission/observation: Escalation of care including admission/observation considered Lab Data [facility] [place] Lab Attestation statement: I reviewed the patient's lab results. 09/02/22 11:36 09/02/22 12:22 Labs: Lab Results 09/02/22 09/02/22 Range/Units 11:36 12:22 WBC 5.5 (4.8-10.8) X10*3/uL RBC 4.52 (4.20-5.50) X10*6/uL Hgb 12.8 (12.0-16.0) g/dl Hct 39.3 (37.0-47.0) % MCV 86.9 (80.0-98.0) fL MCH 28.3 (27.0-33.0) pg MCHC 32.6 (31.0-35.0) g/dl RDW 13.2 (11.0-16.0) % Plt Count 300 (160-400) X10*3/uL MPV 10.2 (9.4-12.3) fL Immature Gran % (Auto) 0.2 (0.0-0.4) % Neut % (Auto) 61.4 (45-73) % Lymph % (Auto) 28.9 (20-40) % Cross % (Auto) 7.5 (2-11) % Eos % (Auto) 1.5 (0-4) % Baso % (Auto) 0.5 (0-2) % Lymph # (Auto) 1.6 (1.2-4.9) X10*3/uL Cross # (Auto) 0.4 (0.1-1.2) X10*3/uL Eos # (Auto) 0.1 (0.0-0.4) X10*3/uL Baso # (Auto) 0.0 (0.0-0.2) X10*3/uL Abs Immat Gran (auto) 0.01 (0.00-0.03) X10*3/uL Absolute Neuts (auto) 3.4 (2.0-8.3) x10*3/uL Absolute Nucleated RBC 0.000 (0.0-0.012) X10*3/uL Nucleated RBC % (auto) 0.0 (0.0-0.2) /100WBC Sodium 140 (135-145) mmol/L Potassium 4.4 (3.3-5.1) mmol/L Chloride 107 (96-108) mmol/L Carbon Dioxide 27 (22-29) mmol/L Anion Gap 10 L (12-20) BUN 12 (9-16) mg/dL Creatinine 0.69 (0.5-1.4) mg/dL Estim Creat Clear Calc 120.4 Estimated GFR > 60 Random Glucose 91 (60-115) mg/dL Calcium 9.0 (8.4-10.2) mg/dL Magnesium 2.1 (1.6-2.6) mg/dL Total Bilirubin 0.5 (0.0-1.0) mg/dL Direct Bilirubin 0.1 (0.0-0.5) mg/dL AST 17 (5-31) U/L ALT 26 (0-31) U/L Alkaline Phosphatase 52 (39-117) U/L Total Protein 6.6 (6.5-8.0) g/dL Albumin 3.9 (3.5-5.0) g/dL Lipase 18 (8-78) U/L Radiology Impression Discussion of test interpretation with radiology: I have reviewed the radiologist's reading. External Record Review External record reviewed: Inpatient record, Office record, Outpatient record, Prior outpatient labs, Prior outpatient radiology, Primary care record and Outside ED record Discharge Plan Discharge Clinical Impression: Acute viral syndrome Patient Disposition: Home, Self-Care Instructions: Viral Syndrome (ED) Additional Instructions: Your blood work is unremarkable. Tested negative for COVID-19 yesterday Zofran as an antinausea medication, take as needed Continue to stay hydrated, drink plenty of water, Gatorade, Pedialyte If symptoms persist or worsen return to the ED Happy birthday! Prescriptions: New ondansetron 4 mg tablet,disintegrating 4 mg PO Q8H PRN (Reason: nausea and vomiting) Qty: 10 0RF No Action albuterol sulfate 90 mcg/actuation HFA aerosol inhaler 2 puff inhalation Q6H PRN (Reason: wheezing) meloxicam 15 mg tablet 15 mg PO DAILY fluticasone propionate [Flovent HFA] 110 mcg/actuation HFA aerosol inhaler 2 puff inhalation BID gabapentin 300 mg capsule 300 mg PO BEDTIME amlodipine 5 mg tablet 5 mg PO DAILY albuterol sulfate 2.5 mg /3 mL (0.083 %) solution for nebulization inhalation prednisone 20 mg tablet 20 mg PO BID Referrals: Shea Carrizales MD [Primary Care Provider] - 5 days Stand Alone Forms: Work/School Release Interventions: ED Discharge Assessment Last Done: 09/02/22 13:37 Discharge Date/Time: 09/02/22 13:37
--- NOTE | 2022-09-02 10:52 | ECG_ITS ---
Test Reason : lightheaded Blood Pressure : / mmHG Vent. Rate : 056 BPM Atrial Rate : 056 BPM P-R Int : 182 ms QRS Dur : 080 ms QT Int : 398 ms P-R-T Axes : 055 010 012 degrees QTc Int : 384 ms Sinus bradycardia with sinus arrhythmia Otherwise normal ECG When compared with ECG of 01-SEP-2022 13:09, No significant change was found Referred By: Dolores Al Electronically Signed By:STACY VILLALOBOS MD
[2022-09-02] MEDS: 0.9 % Sodium Chloride 1,000 ML 999 ML IV (11:41)
[2022-09-02] MEDS: ondansetron HCL 4 MG/2 ML VIAL IVPUSH (11:42)
[2022-09-02 11:43] LABS: Basophils Percent Auto 0.5 % (0-2); Eosinophils Absolute Auto 0.1 X10*3/uL (0.0-0.4); Eosinophils Percent Auto 1.5 % (0-4); Hematocrit 39.3 % (37.0-47.0); Hemoglobin 12.8 g/dl (12.0-16.0); Imm Gran Abs Auto 0.01 X10*3/uL (0.00-0.03); Imm Gran Pct Auto 0.2 % (0.0-0.4); Lymphocytes Absolute Auto 1.6 X10*3/uL (1.2-4.9); Lymphocytes Percent Auto 28.9 % (20-40); MANUAL DIFF FLAG NO; Mean Corpuscular HGB Conc 32.6 g/dl (31.0-35.0); Mean Corpuscular Hemoglobin 28.3 pg (27.0-33.0); Mean Corpuscular Volume 86.9 fL (80.0-98.0); Mean Platelet Volume 10.2 fL (9.4-12.3); Monocytes Absolute Auto 0.4 X10*3/uL (0.1-1.2); Monocytes Percent Auto 7.5 % (2-11); Neutrophils Absolute Auto 3.4 x10*3/uL (2.0-8.3); Neutrophils Percent Auto 61.4 % (45-73); Platelet Count 300 X10*3/uL (160-400); Red Blood Count 4.52 X10*6/uL (4.20-5.50); Red Cell Distribution Width 13.2 % (11.0-16.0); White Blood Count 5.5 X10*3/uL (4.8-10.8)
--- NOTE | 2022-09-02 11:47 | PC.NURSE ---
22G IV placed right wrist, labs drawn, medicated per provider order, 1L NS running.
[2022-09-02 12:38] LABS: Anion Gap 10 (12-20)
[2022-09-02 12:43] LABS: Alanine Aminotransferase 26 U/L (0-31); Albumin Level 3.9 g/dL (3.5-5.0); Alkaline Phosphatase 52 U/L (39-117); Aspartate Amino Transferase 17 U/L (5-31); Bilirubin Direct 0.1 mg/dL (0.0-0.5); Bilirubin Total 0.5 mg/dL (0.0-1.0); Blood Urea Nitrogen 12 mg/dL (9-16); Carbon Dioxide 27 mmol/L (22-29); Chloride 107 mmol/L (96-108); Creatinine Clr Calc Pharmacy 120.4; Estimated Glomerular Filt Rate > 60; Glucose Random 91 mg/dL (60-115); Lipase 18 U/L (8-78); Magnesium 2.1 mg/dL (1.6-2.6); Potassium 4.4 mmol/L (3.3-5.1); Sodium 140 mmol/L (135-145); Total Protein 6.6 g/dL (6.5-8.0)
--- NOTE | 2022-09-02 13:15 | PC.NURSE ---
pt reports improvement of symptoms, requesting discharge.
--- NOTE | 2022-09-02 13:18 | PC.NURSE ---
pt given preet crackers and agata lizzie for PO challenge.
--- NOTE | 2022-09-02 13:36 | PC.NURSE ---
pt tolerated PO challenge.
== END 2022-09-02 13:37 | disposition home or self-care (01) ==
PROVIDERS: Physician Assistant; Emergency Provider Emergency Medicine; PCP Internal Medicine
DX: B34.9 Viral infection, unspecified (principal); R11.0 Nausea; R19.7 Diarrhea, unspecified; R50.9 Fever, unspecified; R53.83 Other fatigue
CPT/HCPCS: 36415; 80048; 80076; 83690; 83735; 85025; 93005; 96361; 96374; 99284; J2405